=== PATIENT | female | born 1985 | race African-American/Black ===

== ENCOUNTER 2016-10-20 09:28 | Emergency (ER) | payer OTHER ==
[~2016-10-20] VITALS: Ht 175.3 cm; Wt 80.0 kg
[~2016-10-20 09:28] MED LIST: AMOXICILLIN/CL875 MG PO; AMOXICILLIN500 MG PO; CELEXA10 MG PO; CIPROFLOXACN500 MG PO; DIFLUCAN150 MG PO; ERYTHROMYCIN333 MG OR; FIORICET PO; FLONASE NASAL50 MCG; LORTAB 5/3255 MG PO; LORTAB5 PO; MACRODANTIN100 MG OR; METRONIDAZOL500 MG PO; METRONIDAZOLE500 MG PO; MONISTAT1 VA; MOTRIN800 MG PO; NAPROSYN500 MG PO; NEXIUM40 M1 PO; NO HOME MEDS; NO MEDS; OLANZAPINE10 MG PO; PENICILLN VK500 MG PO; PRENATA4 OR; SEROQUEL100 MG PO; TYLENOL325 MG OR; ULTRAM50 M1 PO; ZITHROMAX250 MG PO; ZOFRAN ODT8 MG OR; [UNRECOGNIZED DRUG - OTHER] VA
[2016-10-20 10:25] VITALS: BP 139/92
== END 2016-10-20 10:25 | disposition left against medical advice (07) | DRG 103 ==
LOC: ED 09:28
DX: R51 Headache (principal); G25.9 Extrapyramidal and movement disorder, unspecified; Z91.19 Patient's noncompliance with other medical treatment and regimen

== ENCOUNTER 2017-12-22 19:44 | Emergency (ER) | payer OTHER ==
[~2017-12-22] VITALS: Ht 175.3 cm; Wt 82.0 kg
[2017-12-22] MEDS ORDERED: IBUPROFEN600 MG PO (21:17)
[2017-12-22] MEDS ORDERED: SILVADENE1 % EX (21:17)
[2017-12-22 21:20] VITALS: BP 116/66
== END 2017-12-22 21:20 | disposition home or self-care (01) | DRG 935 ==
LOC: ED 19:44
PROC: 2W2EX4Z Dressing of Right Hand using Bandage (ICD-10-PCS; principal; 2017-12-22)
PROC: 2W2CX4Z Dressing of Right Lower Arm using Bandage (ICD-10-PCS; 2017-12-22)
DX: T22.111A Burn of first degree of right forearm, initial encounter (principal); T23.161A Burn of first degree of back of right hand, initial encounter; F17.210 Nicotine dependence, cigarettes, uncomplicated; X10.2XXA Contact with fats and cooking oils, initial encounter; Y93.G3 Activity, cooking and baking; Y92.511 Restaurant or cafe as the place of occurrence of the external cause; Y99.0 Civilian activity done for income or pay

== ENCOUNTER 2018-03-29 16:21 | Emergency (ER) | payer OTHER ==
[~2018-03-29] VITALS: Ht 175.3 cm; Wt 68.2 kg
[~2018-03-29 16:21] MED LIST changes: +IBUPROFEN600 MG PO; +SILVADENE1 % EX
[2018-03-29 18:38] VITALS: BP 132/78
== END 2018-03-29 18:55 | disposition home or self-care (01) | DRG 552 ==
LOC: ED 16:21
DX: M54.2 Cervicalgia (principal); M54.5 Low back pain; R07.81 Pleurodynia; F17.210 Nicotine dependence, cigarettes, uncomplicated; V49.50XA Passenger injured in collision with unspecified motor vehicles in traffic accident, initial encounter

== ENCOUNTER 2018-05-04 10:31 | Emergency (ER) | payer OTHER ==
[~2018-05-04] VITALS: Ht 175.3 cm; Wt 76.0 kg
[2018-05-04] MEDS ORDERED: METHIMAZOLE5 MG PO (10:56)
[2018-05-04] MEDS ORDERED: HYDROXYZ HCL10 MG PO (10:56)
[2018-05-04] MEDS ORDERED: QUETIAPINE FUM100 MG PO (10:57)
[2018-05-04] MEDS ORDERED: VITAMIN D50000 UNIT PO (10:57)
[2018-05-04] MEDS ORDERED: OXCARBAZEPINE150 MG PO (10:57)
[2018-05-04] MEDS ORDERED: [UNRECOGNIZED DRUG - OTHER] IM (10:58)
[2018-05-04 11:58] VITALS: BP 130/66
== END 2018-05-04 11:58 | disposition home or self-care (01) | DRG 552 ==
LOC: ED 10:31
DX: M54.5 Low back pain (principal); F17.210 Nicotine dependence, cigarettes, uncomplicated

== ENCOUNTER 2019-07-03 | Emergency (ER) | payer OTHER ==
[~2019-07-03] MED LIST changes: +HYDROXYZ HCL10 MG PO; +METHIMAZOLE5 MG PO; +OXCARBAZEPINE150 MG PO; +QUETIAPINE FUM100 MG PO; +VITAMIN D50000 UNIT PO; +[UNRECOGNIZED DRUG - OTHER] IM
[2019-07-03] MEDS ORDERED: CEPHALEXIN500 MG PO (11:11)
[2019-07-03] MEDS ORDERED: ROBITUSSIN AC10 ML PO (11:11)
== END 2019-07-03 11:20 | disposition home or self-care (01) ==
DX: J06.9 Acute upper respiratory infection, unspecified (principal); F17.200 Nicotine dependence, unspecified, uncomplicated

== ENCOUNTER 2019-12-12 08:57 | Emergency (ER) | payer OTHER ==
[~2019-12-12] VITALS: Ht 175.3 cm; Wt 85.0 kg
[~2019-12-12 08:57] MED LIST changes: +CEPHALEXIN500 MG PO; +ROBITUSSIN AC10 ML PO
[2019-12-12 09:35] LABS: HEMOGLOBIN 13.6 g/dl (12.0-16.0); IMMATURE GRANULOCYTES 0.2 % (0.0-5.0); MEAN CELL VOLUME 88.1 fL CALC (80.0-100.0); MEAN CORPUSCULAR HGB 28.5 pG CALC (26.0-32.0); MEAN CORPUSCULAR HGB CONC 32.4 g/dL CAL (32.0-36.0); NEUT# 5.69 thou/uL (2.00-7.15); RED BLOOD COUNT 4.77 mill/uL (4.20-5.60); RED CELL DISTRI WIDTH 12.8 % (11.5-15.5)
[2019-12-12 09:36] LABS: URINE BILIRUBIN - DIPSTICK NEGATIVE (NEGATIVE); URINE BLOOD DIPSTICK SMALL (NEGATIVE); URINE COLOR YELLOW; URINE GLUCOSE - DIPSTICK NEGATIVE (NEGATIVE); URINE KETONE 15 mg/dL (NEGATIVE); URINE LEUK ESTERASE NEGATIVE (NEGATIVE); URINE NITRITE - DIPSTICK NEGATIVE (Negative); URINE PROTEIN - DIPSTICK NEGATIVE (NEG-TRACE); URINE UROBILINOGEN - DIPSTICK 0.2 E.U./dL (0.2)
[2019-12-12 09:54] LABS: ALKALINE PHOSPHATASE 64 u/l (38-126); ANION GAP 9 (6-22 (CALC)); BUN 12 mg/dL (7-17); BUN/CREATININE RATIO 13 (12-20 (CALC)); CARBON DIOXIDE 24 mmol/l (22-30); CHLORIDE 107 mmol/l (95-108); CREATININE 0.9 mg/dL (0.5-1.0); GFR > 60 ML/MIN (>=60 (CALC)); GFR FOR AFR.AMER. > 60 ML/MIN (>=60 (CALC)); POTASSIUM 3.7 mmol/l (3.5-5.1); SGOT/AST 22 u/l (14-36); SODIUM 137 mmol/l (137-146); TOTAL PROTEIN 7.8 g/dL (6.3-8.2)
[2019-12-12 09:55] LABS: ALBUMIN 4.8 g/dL (3.2-5.0); BILIRUBIN, TOTAL 1.2 mg/dL (0.0-1.4)
[2019-12-12 10:11] LABS: D-DIMER 0.44 mg/L (0.19-0.60); PROTHROMBIN TIME 10.3 SECONDS (9.0-12.5)
[2019-12-12 10:40] VITALS: BP 121/76
[2019-12-12 10:55] LABS: URINE SQUAMOUS EPITHELIAL CELL FEW EPI/hpf (0-FEW)
== END 2019-12-12 10:40 | disposition home or self-care (01) ==
LOC: ED 08:57
PROVIDERS: Student in an Organized Health Care Education/Training Program
DX: R07.9 Chest pain, unspecified (principal); F17.200 Nicotine dependence, unspecified, uncomplicated; Z20.828 Contact with and (suspected) exposure to other viral communicable diseases

== ENCOUNTER 2020-07-28 22:40 | Emergency (ER) | payer OTHER | END 2020-07-28 22:49 | disposition left against medical advice (07) | DRG 951 | LOC: ED 22:40 → LWOBS 22:48 | DX: Z53.21 Procedure and treatment not carried out due to patient leaving prior to being seen by health care provider (principal) ==

== ENCOUNTER 2020-10-24 08:40 | Emergency (ER) | payer OTHER ==
[~2020-10-24] VITALS: Ht 175.3 cm; Wt 77.1 kg
[2020-10-24 09:47] LABS: URINE BILIRUBIN - DIPSTICK NEGATIVE (NEGATIVE); URINE BLOOD DIPSTICK MODERATE (NEGATIVE); URINE COLOR YELLOW; URINE GLUCOSE - DIPSTICK NEGATIVE (NEGATIVE); URINE KETONE TRACE mg/dL (NEGATIVE); URINE PH 5.5 (4.5-8.0); URINE PROTEIN - DIPSTICK 30 mg/dL (NEG-TRACE); URINE SPECIFIC GRAVITY 1.025; URINE UROBILINOGEN - DIPSTICK 0.2 E.U./dL (0.2)
[2020-10-24 09:50] LABS: URINE LEUK ESTERASE SMALL (NEGATIVE); URINE NITRITE - DIPSTICK POSITIVE (Negative)
[2020-10-24 09:55] LABS: URINE BACTERIA MODERATE hpf; URINE SQUAMOUS EPITHELIAL CELL MODERATE EPI/hpf (0-FEW)
[2020-10-24 09:57] LABS: HEMATOCRIT 39.9 % (37.0-47.0); HEMOGLOBIN 12.8 g/dl (12.0-16.0); IMMATURE GRANULOCYTES 0.3 % (0.0-5.0); MEAN CELL VOLUME 89.7 fL CALC (80.0-100.0); MEAN CORPUSCULAR HGB 28.8 pG CALC (26.0-32.0); MEAN CORPUSCULAR HGB CONC 32.1 g/dL CAL (32.0-36.0); NEUT# 9.2 thou/uL (2.00-7.15); RED BLOOD COUNT 4.45 mill/uL (4.20-5.60); RED CELL DISTRI WIDTH 12.7 % (11.5-15.5)
[2020-10-24 10:02] LABS: ALBUMIN 4.5 g/dL (3.2-5.0); ALKALINE PHOSPHATASE 57 u/l (38-126); ANION GAP 12 (6-22 (CALC)); BILIRUBIN, TOTAL 0.7 mg/dL (0.0-1.4); BUN 11 mg/dL (7-17); BUN/CREATININE RATIO 11 (12-20 (CALC)); CARBON DIOXIDE 24 mmol/l (22-30); CHLORIDE 106 mmol/l (95-108); GFR > 60 ML/MIN (>=60 (CALC)); GFR FOR AFR.AMER. > 60 ML/MIN (>=60 (CALC)); POTASSIUM 4.3 mmol/l (3.5-5.1); SGOT/AST 19 u/l (14-36); SODIUM 138 mmol/l (137-146); TOTAL PROTEIN 7.5 g/dL (6.3-8.2)
[2020-10-24 10:20] VITALS: BP 116/68
[2020-10-24] MEDS ORDERED: BACTRIM DS1 TAB PO (10:31)
== END 2020-10-24 10:38 | disposition home or self-care (01) ==
LOC: ED 08:40
PROVIDERS: Family Medicine
DX: N39.0 Urinary tract infection, site not specified (principal); B96.20 Unspecified Escherichia coli [E. coli] as the cause of diseases classified elsewhere; F17.200 Nicotine dependence, unspecified, uncomplicated; Z90.710 Acquired absence of both cervix and uterus

== ENCOUNTER 2021-01-02 16:41 | Emergency (ER) | payer OTHER ==
[~2021-01-02 16:41] MED LIST changes: +BACTRIM DS1 TAB PO
[2021-01-02 17:27] VITALS: BP 114/76
== END 2021-01-02 18:20 | disposition home or self-care (01) ==
LOC: ED 16:41
DX: U07.1 COVID-19 (principal); F17.210 Nicotine dependence, cigarettes, uncomplicated

== ENCOUNTER 2022-07-07 08:20 | Emergency (ER) | payer OTHER ==
[~2022-07-07] VITALS: Ht 175.3 cm; Wt 77.3 kg
[2022-07-07] MEDS ORDERED: TAM75CAP PO (09:28)
[2022-07-07 09:31] VITALS: BP 113/83
== END 2022-07-07 09:41 | disposition home or self-care (01) ==
LOC: ED 08:20
DX: J11.1 Influenza due to unidentified influenza virus with other respiratory manifestations (principal); F17.210 Nicotine dependence, cigarettes, uncomplicated; Z20.822 Contact with and (suspected) exposure to COVID-19

== ENCOUNTER 2022-08-14 12:25 | Emergency (ER) | payer OTHER ==
[~2022-08-14] VITALS: Ht 175.3 cm; Wt 75.0 kg
[~2022-08-14 12:25] MED LIST changes: +TAM75CAP PO
[2022-08-14] MEDS ORDERED: CLINDAMYCIN300 M1 PO (12:42)
[2022-08-14 12:45] VITALS: BP 145/96
== END 2022-08-14 12:51 | disposition home or self-care (01) ==
LOC: ED 12:25
DX: K03.81 Cracked tooth (principal); F17.200 Nicotine dependence, unspecified, uncomplicated

== ENCOUNTER 2023-07-25 07:20 | Emergency (ER) | payer SELFPAY ==
[~2023-07-25] VITALS: Ht 175.3 cm; Wt 81.8 kg
[2023-07-25] VITALS (7 sets, daily range): BP systolic 105–116; BP diastolic 72–83
[~2023-07-25 07:20] MED LIST changes: +CLINDAMYCIN300 M1 PO
[2023-07-25] MEDS ORDERED: DEXAMETHASONE SOD. PHOSPHATE 10 MG/ML VIAL IM ONE (07:55)
[2023-07-25] MEDS ORDERED: ACETAMINOPHEN 500 MG TAB PO ONE (07:55)
[2023-07-25] MEDS ORDERED: MOTRIN800 MG PO (08:50)
== END 2023-07-25 09:02 | disposition home or self-care (01) | DRG 153 ==
LOC: ED 07:20
DX: J02.9 Acute pharyngitis, unspecified (principal); Z20.822 Contact with and (suspected) exposure to COVID-19

== ENCOUNTER 2023-12-26 06:43 | Emergency (ER) | payer SELFPAY ==
[~2023-12-26] VITALS: Ht 175.3 cm; Wt 63.0 kg
[2023-12-26] MEDS ORDERED: TYLENOL # 31 TA1 PO (07:04)
[2023-12-26] MEDS ORDERED: AMOXICILLIN500 M2 PO (07:04)
[2023-12-26 07:28] VITALS: BP 133/77
== END 2023-12-26 07:24 | disposition home or self-care (01) | DRG 159 ==
LOC: ED 06:43
DX: K04.7 Periapical abscess without sinus (principal); F17.210 Nicotine dependence, cigarettes, uncomplicated